=== PATIENT | male | born 1990 | race Caucasian/White ===

== ENCOUNTER 2021-06-12 15:43 | Emergency (ER) | payer OTHER ==
[~2021-06-12] VITALS: Ht 165.1 cm; Wt 93.9 kg
[2021-06-12 16:11] VITALS: BP 145/77
[2021-06-12] MEDS ORDERED: IBUPROFEN 600 MG TAB PO ONE (16:35)
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
[2021-06-12] MEDS ORDERED: IBUP-2213 PO (17:24)
[2021-06-12] MEDS ORDERED: CYCL-711 PO (17:24)
--- NOTE | 2021-06-12 17:46 | NUR ---
pt placed in right velcro thumb spica splint, CMS WNL
[2021-06-12 20:03] VITALS: BP 145/77
--- NOTE | 2021-06-12 20:03 | NUR ---
CALLED PT FOR DISCHARGE NO ANSWER, CALLED PT TO NUMBER ON FILE NO ANSWER.
--- NOTE | 2021-06-12 20:03 | NUR ---
Patient discharged with v/s stable. Written and verbal after care instructions given and explained. Patient alert, oriented and verbalized understanding of instructions. Ambulatory with steady gait. All questions addressed prior to discharge. ID band removed. Patient advised to follow up with PMD. Rx of FLEXERIL AND MOTRIN given. Patient educated on indication of medication including possible reaction and side effects. Opportunity to ask questions provided and answered. PT LEFT WITHOUT PAPERWORK.
== END 2021-06-12 20:03 | disposition home or self-care (01) ==
LOC: MED 15:43
DX: S16.1XXA Strain of muscle, fascia and tendon at neck level, initial encounter (principal); S63.502A Unspecified sprain of left wrist, initial encounter; R03.0 Elevated blood-pressure reading, without diagnosis of hypertension; V98.8XXA Other specified transport accidents, initial encounter; Y93.89 Activity, other specified; Y92.89 Other specified places as the place of occurrence of the external cause; Y99.8 Other external cause status
CPT/HCPCS: 72040; 73110; 99284